=== PATIENT | female | born 1995 | race Caucasian/White ===

== ENCOUNTER 2023-07-01 08:43 | Outpatient (CLI) | payer OTHER, SELFPAY ==
[2023-07-01 09:15] VITALS: BP 137/82; PULSE 103
[2023-07-01 09:24] LABS: Basophils Absolute Auto 0.1 K/mm3 (0.0-0.1); Basophils Percent Auto 0.7 % (0.2-1.2); Eosinophils Absolute Auto 0.3 K/mm3 (0-0.3); Eosinophils Percent Auto 3.2 % (0-4.4); Hematocrit 31.6 % (37.0-47.0); Hemoglobin 9.4 g/dL (12.0-15.0); Immature Granulocyte Absolute 0.07 K/mm3 (0.00-0.031); Immature Granulocyte Percent A 0.7 % (0-0.5); Lymphocytes Absolute Auto 1.86 K/mm3 (0.9-3.2); Lymphocytes Percent Auto 18.7 % (18.3-44.2); Mean Corpuscular HGB Conc 29.7 g/dl (32-36); Mean Corpuscular Hemoglobin 23.6 pg (26-34); Mean Corpuscular Volume 79.2 fl (80-100); Mean Platelet Volume 9.9 fl (7.4-10.4); Monocytes Absolute Auto 0.6 K/mm3 (0.1-0.6); Monocytes Percent Auto 6.4 % (2.6-8.5); Neutrophils Percent Auto 70.3 % (45.5-73.1); Platelet Count Result 311 k/mm3 (150-375); Red Blood Count 3.99 M/mm3 (4.2-5.4); Red Cell Distribution Width 13.5 % (11.5-14.5); White Blood Count 9.9 K/mm3 (4.5-10.0)
[2023-07-01 09:30] VITALS: BP 124/86; PULSE 96
[2023-07-01 09:36] LABS: Alanine Aminotransferase 24 U/L (6-35); Albumin Level 3.4 g/dL (3.5-5.1); Alkaline Phosphatase 97 U/L (38-126); Anion Gap 7 mmol/L (8-16); Aspartate Amino Transferase 21 U/L (14-36); Bilirubin,Total 0.3 mg/dL (0.2-1.3); Blood Urea Nitrogen 5 mg/dL (7-17); Calcium 9.1 mg/dL (8.4-10.2); Carbon Dioxide 23 mmol/L (22-30); Chloride 104 mmol/L (98-107); Estimated Glomerular Filt Rate > 60; Glucose 99 mg/dL (65-110); Potassium 3.4 mmol/L (3.4-5.0); Sodium 134 mmol/L (137-145); Uric Acid 3.8 mg/dL (2.5-7.5)
[2023-07-01 09:46] LABS: Hypochromasia 1+ (NORMAL); Platelet Estimate Adequate (Adequate); Schistocytes None Seen (NORMAL)
[2023-07-01 10:00] VITALS: BP 119/78; PULSE 94
[2023-07-01 10:01] LABS: Appearance Urine Turbid (Clear); Bacteria Urine 3+ /hpf; Bilirubin Urine Negative (Negative); Blood Urine Negative (Negative); Color Urine Yellow (Yellow); Glucose Urine UA Negative (Negative); Ketones Urine Negative (Negative); Leukocyte Esterase Ur Trace LEU/UL (NEGATIVE); Nitrate Urine Negative (Negative); Protein Urine Negative (Negative); RBC Urine 0-2 /hpf (0-2); Specific Grav Ur 1.016 (1.001-1.035); Squamous Epithelial Cell Urine Few /hpf (Few); Urobilinogen Urine 0.2 mg/dL (<2.0)
[2023-07-01 10:06] LABS: Add Urine Microscopic? YES
[2023-07-01 10:10] LABS: Creatinine Urine 93.5 mg/dL; Total Protein Urine Random 33 mg/dL; Ur Ttl Prot Creatinine Ratio 0.35 mg/mg (0-0.20)
[2023-07-01 10:15] VITALS: BP 124/77; PULSE 95
[2023-07-01 10:20] VITALS: BP 119/78; PULSE 100
== END 2023-07-01 10:25 | disposition home or self-care (01) ==
LOC: ANHOBOP 08:52 → ANHOBPP 08:53
PROVIDERS: PCP Family Medicine; Visit Provider Obstetrics & Gynecology
DX: O13.3 Gestational [pregnancy-induced] hypertension without significant proteinuria, third trimester (principal); O36.8130 Decreased fetal movements, third trimester, not applicable or unspecified; Z3A.32 32 weeks gestation of pregnancy
CPT/HCPCS: 36415; 59025; 80053; 81001; 82570; 84156; 84550; 85025; 87086; 99199

== ENCOUNTER 2023-08-11 05:04 | Inpatient (IN) | payer OTHER, SELFPAY ==
[2023-08-11] VITALS (172 sets, daily range): BP systolic 84–155; BP diastolic 53–134; PULSE 65–233; RESP 18; TEMP 36.7–37.2; O2SAT 91–100; BMI 34.3
--- NOTE | 2023-08-11 05:46 | P.HP_ITS ---
H&P: HPI History of Present Illness Date/Time: 08/11/23 05:46 Chief Complaint: Hypertension at term Narrative: 28-year-old 1 para 0 whose last was period was 11/17/2022, EDC is 08/24/2023, presents at 3817 weeks gestation for induction of labor. She is positive for group B strep and has elevated blood pressures. PIH labs will be drawn. She has an early ultrasound and visit confirming dates. [facility] Family History Family History Other Unknown family medical history Social History Social History Substance use: never Spiritual care concerns: No Meds Home Medications and Allergies Home Medications Medication Instructions Recorded Confirmed Type ferrous sulfate 325 mg (65 mg 325 mg PO DAILY 08/05/23 08/05/23 History iron) tablet vits no.126-ferrous fum 1 tablet PO DAILY 08/05/23 08/05/23 History 28 mg iron-folic acid 800 mcg tablet (Classic ) Allergies Allergy/AdvReac Type Severity Reaction Status Date / Time ciprofloxacin [From Cipro] Allergy Rash Verified 08/05/23 12:36 Sulfa (Sulfonamide Allergy Swelling Verified 08/05/23 12:36 Antibiotics) Exam Const: General: cooperative, healthy appearing and comfortable Nutritional Appearance: average body habitus Orientation/consciousness: oriented to person, oriented to place and oriented to time HENMT: Head: normal to inspection Resp: Effort & Inspection: normal respiratory effort Cardio: Rate: regular rate Rhythm: regular rhythm Heart sounds: S1 normal heart sound present and S2 normal heart sound present GI: Inspection: normal to inspection ( Soft gravid uterus) : External Female Exam: normal external appearance Speculum Exam - Vagina: normal appearance of the vagina Speculum Exam - Cervix: normal appearance of the cervix ( cervix 3/80/1. AROM clear. FHTs reassuring) Assessment and Plan Assessment and plan (1) Term : Code(s): Z34.90 - Encounter for supervision of normal , unspecified, unspecified trimester Status: Acute (2) Gestational hypertension: Code(s): O13.9 - Gestational [-induced] hypertension without significant proteinuria, unspecified trimester Status: Acute (3) Positive testing for group B Streptococcus: Code(s): B95.1 - Streptococcus, group B, as the cause of diseases classified elsewhere Status: Acute Plan medical induction of labor. Group B strep prophylaxis PIH labs were drawn. Tailor's failed various expected
[2023-08-11 05:50] LABS: Basophils Absolute Auto 0.1 K/mm3 (0.0-0.1); Eosinophils Absolute Auto 0.4 K/mm3 (0-0.3); Eosinophils Percent Auto 3.8 % (0-4.4); Hematocrit 29.7 % (37.0-47.0); Hemoglobin 8.4 g/dL (12.0-15.0); Immature Granulocyte Absolute 0.04 K/mm3 (0.00-0.031); Immature Granulocyte Percent A 0.4 % (0-0.5); Mean Corpuscular HGB Conc 28.3 g/dl (32-36); Mean Corpuscular Hemoglobin 21.3 pg (26-34); Mean Corpuscular Volume 75.4 fl (80-100); Mean Platelet Volume 10.3 fl (7.4-10.4); Monocytes Absolute Auto 0.8 K/mm3 (0.1-0.6); Neutrophils Absolute Auto 5.5 K/mm3 (1.3-6.7); Neutrophils Percent Auto 58.8 % (45.5-73.1); Nucleated Red Blood Cells Perc 0.2 % (0.0-0.2); Platelet Count Result 311 k/mm3 (150-375); Red Blood Count 3.94 M/mm3 (4.2-5.4); Red Cell Distribution Width 16.2 % (11.5-14.5); White Blood Count 9.3 K/mm3 (4.5-10.0)
[2023-08-11] MEDS: LACTATED RINGERS 1,000 ML 125 ML IV CONT ×3 (05:51→15:05)
[2023-08-11] MEDS: AMPICILLIN 2 GM/NS 100 ML 2 GM/100 ML BAG IVPB (05:52)
[2023-08-11 06:00] LABS: Uric Acid 5.4 mg/dL (2.5-7.5)
--- NOTE | 2023-08-11 06:01 | LDADM ---
This patient, Oly Garcias, was admitted to Labor/Delivery/Recovery 104 on 08/11/23 at 05:04. Plans for labor, pain management and were discussed with patient. Patient/family oriented to hospital policies and general routines including ID bracelet, bed and alarms, visiting hours, pain management, procedures, bathroom and other care routines, personal items, smoking policy, room service/diet and guest tray routines, infant security routines, and visiting hours. Patient/Family are encouraged to report perceived risks to care and to ask questions if they do not understand what they are told or what they should do. See OBIX for further documentation.
[2023-08-11 06:11] LABS: Alanine Aminotransferase 23 U/L (6-35); Albumin Level 3.1 g/dL (3.5-5.1); Alkaline Phosphatase 126 U/L (38-126); Anion Gap 5 mmol/L (8-16); Aspartate Amino Transferase 23 U/L (14-36); Bilirubin,Total 0.3 mg/dL (0.2-1.3); Blood Urea Nitrogen 8 mg/dL (7-17); Calcium 9.4 mg/dL (8.4-10.2); Carbon Dioxide 20 mmol/L (22-30); Chloride 110 mmol/L (98-107); Estimated CRCL calculation 125 ml/min; Estimated Glomerular Filt Rate > 60; Glucose 106 mg/dL (65-110); Potassium 3.8 mmol/L (3.4-5.0); Sodium 135 mmol/L (137-145)
[2023-08-11 06:22] LABS: Anisocytosis 1+ (NORMAL); Hypochromasia 1+ (NORMAL); Large Platelets Present; Platelet Estimate Adequate (Adequate); Schistocytes None Seen (NORMAL)
[2023-08-11] MEDS: OXYTOCIN 30 UNITS/NS 500 ML 30 UNITS/500 ML BAG 6 UNITS IV CONT (06:35)
[2023-08-11] MEDS: AMPICILLIN 1 GM/NS 50 ML 1 GM/50 ML BAG IVPB ×2 (10:06→14:00)
--- NOTE | 2023-08-11 10:46 | WPDANESEPP ---
Anes - Eval Pre Procedure Procedure: Labor Epidural Date/Time: 08/11/23 10:46 Surgeon: David Preop Diagnosis: Labor Pain Pre Op Diagnosis: IOL Patient Data Age: 28 Gender: F Height: 1.6 m Weight: 88 kg Last Vital Signs Pulse 103 H 08/11/23 10:43 BP 133/79 08/11/23 10:43 Pulse Ox 100 08/11/23 10:42 O2 Del Method Room Air 08/11/23 06:00 Allergies Allergy/AdvReac Type Severity Reaction Status Date / Time ciprofloxacin [From Cipro] Allergy Rash Verified 08/11/23 05:53 Sulfa (Sulfonamide Allergy Swelling Verified 08/11/23 05:53 Antibiotics) Home Medications Medication Instructions Recorded Confirmed Type ferrous sulfate 325 mg (65 mg 325 mg PO DAILY 08/05/23 08/05/23 History iron) tablet vits no.126-ferrous fum 1 tablet PO DAILY 08/05/23 08/05/23 History 28 mg iron-folic acid 800 mcg tablet (Classic ) Laboratory Tests 08/11/23 05:36 WBC 9.3 K/mm3 (4.5-10.0) RBC 3.94 L M/mm3 (4.2-5.4) Hgb 8.4 L g/dL (12.0-15.0) Hct 29.7 L % (37.0-47.0) MCV 75.4 L fl (80-100) MCH 21.3 L pg (26-34) MCHC 28.3 L g/dl (32-36) RDW 16.2 H % (11.5-14.5) Plt Count 311 k/mm3 (150-375) MPV 10.3 fl (7.4-10.4) Immature Gran % (Auto) 0.4 % (0-0.5) Neut % (Auto) 58.8 % (45.5-73.1) Lymph % (Auto) 27.0 % (18.3-44.2) [place] % (Auto) 9.0 H % (2.6-8.5) Eos % (Auto) 3.8 % (0-4.4) Baso % (Auto) 1.0 % (0.2-1.2) Lymph # (Auto) 2.50 K/mm3 (0.9-3.2) [place] # (Auto) 0.8 H K/mm3 (0.1-0.6) Eos # (Auto) 0.4 H K/mm3 (0-0.3) Baso # (Auto) 0.1 K/mm3 (0.0-0.1) Abs Immat Gran (auto) 0.04 H K/mm3 (0.00-0.031) Absolute Neuts (auto) 5.5 K/mm3 (1.3-6.7) Absolute Nucleated RBC 0.0 K/mm3 (0.0-0.012) Nucleated RBC % 0.2 % (0.0-0.2) Platelet Estimate Adequate (Adequate) Large Platelets Present Hypochromasia 1+ (NORMAL) Anisocytosis 1+ (NORMAL) Schistocytes None seen (NORMAL) Sodium 135 L mmol/L (137-145) Potassium 3.8 mmol/L (3.4-5.0) Chloride 110 H mmol/L (98-107) Carbon Dioxide 20 L mmol/L (22-30) Anion Gap 5 L mmol/L (8-16) BUN 8 mg/dL (7-17) Creatinine 0.60 L mg/dL (0.7-1.0) Estim Creat Clear Calc 125 ml/min Estimated GFR > 60 (59 - ) Glucose 106 mg/dL (65-110) Uric Acid 5.4 mg/dL (2.5-7.5) Calcium 9.4 mg/dL (8.4-10.2) Total Bilirubin 0.3 mg/dL (0.2-1.3) AST 23 U/L (14-36) ALT 23 U/L (6-35) Alkaline Phosphatase 126 U/L (38-126) Total Protein 6.0 L g/dL (6.3-8.2) Albumin 3.1 L g/dL (3.5-5.1) RPR Pending Blood Type A Positive Antibody Screen Negative : gestational age (SUZETTE 08/24/23, ) Patient hx anesthesia problems: none Family hx anesthesia problems: none Results Review: All pre-operative results and documents have been reviewed as part of the pre-operative evaluation. [facility] Family History Family History Other Unknown family medical history Social History Social History Smoking status: Never smoker Substance use: never Do You Feel Safe in your Home?: No Lack of Transportation: No Lack of Food: Never True Current Housing: I Have Housing Concerned About Future Housing: No Difficulty Paying Gas/Electric Bills: No Difficulty Paying for Meds: No Currently Unemployed: No Education: High School Diploma/GED Difficulty w/ Childcare or Family Care: No Spiritual care concerns: No Comments Induction for gestational htn Exam Day of Procedure 08/11/23 10:46 Patient weight: normal Heart: regular rate and rhythm Lungs: normal air movement Airway: Mallampati scale Neurological: alert and oriented
--- NOTE | 2023-08-11 11:51 | PM.OBPNLAB ---
Pain Control Date/time seen: 08/11/23 11:51 Pain control: tolerating well and epidural Pelvic Exam Dilation (cm): 4 Effacement (%): 80 station: -2 Amniotic membrane status: Leaking Contractions Monitor mode: Internal
[2023-08-11 14:39] LABS: Rapid Plasma Reagin Non-Reactive (NonReactive)
--- NOTE | 2023-08-11 16:21 | PM.OBPNLAB ---
Pain Control Date/time seen: 08/11/23 16:21 Pain control: tolerating well and epidural Pelvic Exam Dilation (cm): 10 Effacement (%): 100 station: -2 Amniotic membrane status: Leaking Contractions Monitor mode: Internal
--- NOTE | 2023-08-11 16:59 | PM.OBPRVD ---
OB - Vaginal Delivery Note Procedure Delivery date: 08/11/23 Events: Gestational Hypertension Induction method: AROM Delivery augmentation: Pitocin Delivery monitor: External FHT and Internal Uterine Route of delivery: Episiotomy description: None Laceration Description: None Specimen: No Quantitative Blood Loss (ml): 61 Anesthesia type: Epidural Disposition: Floor Complications: No immediate complications [place] Baby Date of : 08/11/23 Time of : 16:50 Weeks of gestation at delivery: 38 Infant gender: Male presentation: vertex position: Right Occiput Anterior Placenta delivery description: Spontaneous Cord Vessel Description: 3 Vessels score one minute: 8 score five minutes: 9 Narrative: amp 3 for gbs
--- NOTE | 2023-08-11 17:01 | PM.DS ---
DS: Admitting Diagnosis Discharge Date 08/13/2023 Admitting Diagnosis Gestational hypertension /term DS: Discharge Diagnosis Discharge Diagnosis (1) Positive testing for group B Streptococcus: Code(s): B95.1 - Streptococcus, group B, as the cause of diseases classified elsewhere Status: Acute (2) Gestational hypertension: Code(s): O13.9 - Gestational [-induced] hypertension without significant proteinuria, unspecified trimester Status: Acute (3) Term : Code(s): Z34.90 - Encounter for supervision of normal , unspecified, unspecified trimester Status: Acute DS: Summary Hospital Course Reason for hospitalization: patient was admitted on 08/11/2023 for induction of labor secondary to elevated blood pressures positive group B strep. Hospital Course: Patient underwent spontaneous vaginal delivery at . Hospital course unremarkable. She remained afebrile. She was up, voiding without difficulty, eating regular diet, ambulating, generally without complaints Time Spent with Patient Time attestation: Total time spent providing and/or coordinating discharge services: Exam Const: General: cooperative, healthy appearing and comfortable Nutritional Appearance: average body habitus Orientation/consciousness: oriented to person, oriented to place and oriented to time Resp: Effort & Inspection: normal respiratory effort Cardio: Rate: regular rate Rhythm: regular rhythm Heart sounds: S1 normal heart sound present and S2 normal heart sound present GI: Inspection: normal to inspection ( fundus firm below umbilicus) DS: Data Data Completed and Pending Labs on day of discharge: Labs from last 24 hours 08/11/23 05:36 WBC 9.3 RBC 3.94 L Hgb 8.4 L Hct 29.7 L MCV 75.4 L MCH 21.3 L MCHC 28.3 L RDW 16.2 H Plt Count 311 MPV 10.3 Immature Gran % (Auto) 0.4 Neut % (Auto) 58.8 Lymph % (Auto) 27.0 [place] % (Auto) 9.0 H Eos % (Auto) 3.8 Baso % (Auto) 1.0 Lymph # (Auto) 2.50 [place] # (Auto) 0.8 H Eos # (Auto) 0.4 H Baso # (Auto) 0.1 Abs Immat Gran (auto) 0.04 H Absolute Neuts (auto) 5.5 Absolute Nucleated RBC 0.0 Nucleated RBC % 0.2 Platelet Estimate Adequate Large Platelets Present Hypochromasia 1+ Anisocytosis 1+ Schistocytes None seen Sodium 135 L Potassium 3.8 Chloride 110 H Carbon Dioxide 20 L Anion Gap 5 L BUN 8 Creatinine 0.60 L Estim Creat Clear Calc 125 Estimated GFR > 60 Glucose 106 Uric Acid 5.4 Calcium 9.4 Total Bilirubin 0.3 AST 23 ALT 23 Alkaline Phosphatase 126 Total Protein 6.0 L Albumin 3.1 L RPR Non-reactive Blood Type A Positive Antibody Screen Negative Discharge Plan Discharge Attending physician on discharge: Sohan Barrera Discharging Clinician: Sohan Barrera Patient Disposition: Home, Self-Care Activity: may shower and no straining Diet: heart healthy Wound Care Instructions: follow printed instructions Patient Instructions: Antibiotic Form Stand Alone Forms: General Discharge Information Follow-up/Referrals: Sohan Barrera MD [Physician] - Discharge Medications: No Action Classic 28 mg iron- 800 mcg Tablet 1 tablet PO DAILY ferrous sulfate 325 mg (65 mg iron) Tablet 325 mg PO DAILY Date of admission: 08/11/23 05:04 Primary Care Provider: Ever,Paola Admitting Provider: Sohan Barrera Attending physician on admission: Sohan Barrera Condition: Stable
[2023-08-11] MEDS: OXYTOCIN 30 UNITS/NS 500 ML 30 UNITS/500 ML BAG 125 UNITS IV CONT (17:16)
[2023-08-11] MEDS: IBUPROFEN 600 MG TABLET PO (19:07)
[2023-08-12] MEDS: IBUPROFEN 600 MG TABLET PO ×3 (02:15→13:53)
[2023-08-12] MEDS: ACETAMINOPHEN 325 MG TABLET 650 MG PO ×3 (02:16→16:43)
[2023-08-12 04:00] VITALS: BP 140/67; PULSE 86; RESP 18; TEMP 36.5; O2SAT 100
[2023-08-12 04:26] LABS: Hematocrit 27.4 % (37.0-47.0); Hemoglobin 8.1 g/dL (12.0-15.0)
--- NOTE | 2023-08-12 06:04 | P.PNOB_ITS ---
OB - PN: Subj Subjective Date/time seen: 08/12/23 06:04 Patient comments: no complaints and pain well controlled baby status: doing well OB - PN: Obj Data Labs 08/12/23 02:10 08/11/23 05:36 Labs: Laboratory Results - last 24 hr 08/11/23 08/12/23 05:36 02:10 WBC 9.3 RBC 3.94 L Hgb 8.4 L 8.1 L Hct 29.7 L 27.4 L MCV 75.4 L MCH 21.3 L MCHC 28.3 L RDW 16.2 H Plt Count 311 MPV 10.3 Immature Gran % (Auto) 0.4 Neut % (Auto) 58.8 Lymph % (Auto) 27.0 [place] % (Auto) 9.0 H Eos % (Auto) 3.8 Baso % (Auto) 1.0 Lymph # (Auto) 2.50 [place] # (Auto) 0.8 H Eos # (Auto) 0.4 H Baso # (Auto) 0.1 Abs Immat Gran (auto) 0.04 H Absolute Neuts (auto) 5.5 Absolute Nucleated RBC 0.0 Nucleated RBC % 0.2 Platelet Estimate Adequate Large Platelets Present Hypochromasia 1+ Anisocytosis 1+ Schistocytes None seen Sodium 135 L Potassium 3.8 Chloride 110 H Carbon Dioxide 20 L Anion Gap 5 L BUN 8 Creatinine 0.60 L Estim Creat Clear Calc 125 Estimated GFR > 60 Glucose 106 Calcium 9.4 Total Bilirubin 0.3 AST 23 ALT 23 Alkaline Phosphatase 126 Total Protein 6.0 L Albumin 3.1 L RPR Non-reactive Blood Type A Positive Antibody Screen Negative OB - PN A/P Plan day: 1 Plan: routine care Time Spent With Patient Time: Total time spent is greater than 50% in coordination of care (as documented) at patient's floor/unit and/or counseling patient: Time with patient: less than 15 minutes Exam Const: General: cooperative, healthy appearing and comfortable Nutritional Appearance: average body habitus Orientation/consciousness: oriented to person, oriented to place and oriented to time Resp: Effort & Inspection: normal respiratory effort Cardio: Rate: regular rate Rhythm: regular rhythm Heart sounds: S1 normal heart sound present and S2 normal heart sound present GI: Inspection: normal to inspection
[2023-08-12] MEDS: POLYSACCHARIDE IRON COMPLEX 150 MG CAPSULE PO ×2 (08:31→16:44)
[2023-08-12] MEDS: MULTIVIT/MIN/PREN/FOL AC/IRON TABLET 1 TAB PO (08:31)
[2023-08-12] MEDS: DOCUSATE SODIUM 100 MG CAPSULE PO ×2 (08:31→16:44)
[2023-08-12 09:35] VITALS: BP 128/85; PULSE 89; RESP 16; TEMP 36.8; O2SAT 100
[2023-08-12 11:58] VITALS: BP 127/71; PULSE 86; RESP 16; TEMP 36.8; O2SAT 100
--- NOTE | 2023-08-12 13:10 | PC.NURSE ---
[id number] - Introductions were made, then consulted with patient to assess needs related to . Discussed with mother her?plans to feed?her , the?experience so far, sharing education regarding waking infant to breastfeed, the benefits of [id number], and stimulating to wake to breastfeed. Resources provided for inpatient and outpatient services with the feeding sheet, mom/baby guide and name written on the communication board. Mother voiced understanding of information, encouraged to call for a latch assessment with the next feeding. Infant is not in the room at this time. Maternal mother is supportive, a former coworker of MAGDA LOPEZ at [employer], and mentions other supportive family member successful with . [id number] Mother called and requested a consultation. Introductions were made with the father of the baby, then consulted with patient to assess needs related to . Mother led the conversation with her?plans to feed?her infant, the?experience so far, and works well with her with encouragement. Encouraged understanding of the benefits of skin to skin (demonstrating unwrapping and placing upright on her chest), stimulating with massage touch, changing positions to encourage wakefulness, how to watch for early feeding cues, responsive feeding, feeding on demand (aiming for 8-12 times in 24 hours, about every 2-3 hours), milk production, building/maintaining a milk supply, duration of feeding, signs of adequate intake/output and how to record on the feeding sheet. Mother works well with her infant with encouragement and education. Reviewed positioning and ear, shoulder, hip alignment, supporting the breast to facilitate a deep latch, asymmetrical latch (off-center), leading with the chin with a big, open, wide gape and body close to mother. latched optimally to the right breast in football position. Education given to the mother of how to visualize the suckling (with good rocking jaw motion), swallows (dropping of the lower jaw) and how to listen for drinking at the breast (the ka sound) which demonstrates well. Infant was able to maintain latch without pain to mother protecting the nipple with optimal positioning and latching. Reviewed comfort measures of healing with a warm, wet washcloth to rinse breast, then leave open to air-dry, good handwashing when or touching the breast/nipples to prevent infection. Mother voiced understanding of skin to skin, stimulating with massage touch, responsive feedings, hand expressed colostrum, talking to to encourage if it has been 2 -2.5 hours since the start of the last , to call if infant does not latch, or if there is discomfort with . Resources used for education were facilitated with the visual educational handouts/ tool/mom and baby guide. Inpatient/outpatient resources provided with feeding sheet, name written on the communication board, and the mom/baby guide. Parents voiced understanding of information, demonstrated learning and will call if there is a request for assistance. Reported to the Primary RN.
[2023-08-12 16:40] VITALS: BP 130/84; PULSE 81
[2023-08-12 19:10] VITALS: BP 133/97; PULSE 88; RESP 18; TEMP 36.7; O2SAT 99
[2023-08-13] VITALS: BP 128/82
[2023-08-13] MEDS: IBUPROFEN 600 MG TABLET PO ×2 (02:45→08:30)
[2023-08-13 02:59] VITALS: BP 124/85
--- NOTE | 2023-08-13 05:45 | P.PNOB_ITS ---
OB - PN: Subj Subjective Date/time seen: 08/13/23 05:45 Patient comments: no complaints and pain well controlled baby status: doing well and nursing well OB - PN: Obj Data Labs 08/12/23 02:10 08/11/23 05:36 OB - PN A/P Plan day: 2 Plan: routine care, discharge home and follow up 6 weeks Time Spent With Patient Time: Total time spent is greater than 50% in coordination of care (as documented) at patient's floor/unit and/or counseling patient: Time with patient: less than 15 minutes Exam Const: General: cooperative, healthy appearing and comfortable Nutritional Appearance: average body habitus Orientation/consciousness: oriented to person, oriented to place and oriented to time Resp: Effort & Inspection: normal respiratory effort Cardio: Rate: regular rate Rhythm: regular rhythm Heart sounds: S1 n ormal heart sound present and S2 normal heart sound present GI: Inspection: normal to inspection
[2023-08-13 08:30] VITALS: BP 124/93; PULSE 84; RESP 16; TEMP 37.1; O2SAT 99
[2023-08-13] MEDS: BENZOCAINE 20% AER SPR (*SP) 56 GM CAN 1 SPRAY TOPICAL (08:31)
[2023-08-13] MEDS: POLYSACCHARIDE IRON COMPLEX 150 MG CAPSULE PO (08:31)
[2023-08-13] MEDS: DOCUSATE SODIUM 100 MG CAPSULE PO (08:31)
[2023-08-13] MEDS: WITCH HAZEL 40 PADS 1 PAD TOPICAL (08:31)
[2023-08-13] MEDS: MULTIVIT/MIN/PREN/FOL AC/IRON TABLET 1 TAB PO (08:31)
[2023-08-13] MEDS: ACETAMINOPHEN 325 MG TABLET 650 MG PO ×2 (08:32→15:47)
[2023-08-13 12:28] VITALS: BP 145/88; PULSE 95; RESP 16; TEMP 36.9; O2SAT 100
--- NOTE | 2023-08-13 12:33 | PC.NURSE ---
[id number] Consulted with patient to assess needs related to . Discussed with mother her successes, concerns and any questions she has. Mother shared that last night was rough and she chose to formula feed to supplement. Reviewed waking up , stimulating, changing diaper, and practicing skin to skin, responding to feeding cues, frequencies of feeding 8-12 times in 24 hours (approximately 2-3 hours), duration of feedings, milk production, intake/output feeding sheet and signs of adequate intake encouraging swallowing at the breast. Infant had a large stool and void, then placed back [id number] on mother's chest/breast. Nipple care reviewed with optimal latch, good positioning and using clean hands when touching her breast. Mother voiced understanding of the education shared, to call for assistance if the infant does not latch or if there is discomfort with . Reported to the Primary RN. [phone] Mother requested consult and works well with her . Reviewed positioning and ear, shoulder, hip alignment, supporting the breast to facilitate a deep latch, asymmetrical latch (off-center), leading with the chin with a big, open, wide gape and body close to mother. latched optimally to the left breast in football position. Education given to the mother of how to visualize the suckling (with good rocking jaw motion), swallows (dropping of the lower jaw) and how to listen for drinking at the breast (the ka sound) which infant demonstrates. Infant was able to maintain latch without pain to mother protecting the nipple with optimal positioning and latching. Reminded mother to use good handwashing technique to prevent infection. Mother is feeding appropriately for growth of infant and understands stimulating infant to eat if needed. Infant has had appropriate feedings in the last 24 hours meets the outcomes for weight, output, blood sugar and jaundice at this time. Mother states she is confident to continue effectively her at home, when to call for assistance, denies any additional assistance or education at this time. Reinforced understanding of milk production, transition of milk, signs of adequate intake, transition of stool, prevention/relief of engorgement, plugged ducts, mastitis, responsive watching for feeding cues, the different methods of stimulating to breastfeed 1-3 hours after the start of the last feeding, community resources, and when to call a provider using the resource of the feeding sheet along with the mom and baby guide. Parents voiced understanding of the education shared. Reported to the Primary RN
--- NOTE | 2023-08-13 14:30 | PC.NURSE ---
PT introductions made and plan of care discussed per post , pain management, breast feeding, daily care activities and pending discharge to home. PT and fob both recipients of such instructions and no barriers to learning identified at this time. PT received such instructions per one to one discussion, mom baby care guide and demonstrations this shift. PT verbalized understanding of such care.
--- NOTE | 2023-08-13 16:15 | PC.NURSE ---
PT received discharge instructions per protocol and verbalized understanding of such care. Patient was given the opportunity to view the discharge video Mother & Baby Care, The First Two Weeks and to ask questions. Patient declined viewing the video and has been given the mother/baby guide for home reference. Patient viewed the discharge video Mother & Baby Care, The First Two Weeks . Patient was given the opportunity and encouraged to ask questions. Patient verbalized understanding of information shared and has been given the mother/baby guide for home reference.
--- NOTE | 2023-08-13 16:52 | PC.NURSE ---
PT discharged to home ambulatory accompanied by fob and infant and walked to waiting car. Follow up appts confirmed
[2023-08-14 11:45] VITALS: BP 126/96; PULSE 89; RESP 18; TEMP 36.7; O2SAT 100
== END 2023-08-13 16:52 | disposition home or self-care (01) | DRG 807 ==
LOC: ANHLDR 17:03 → ANHOB2 19:21
PROVIDERS: Admitting Provider Obstetrics & Gynecology; PCP Family Medicine; Visit Provider Obstetrics & Gynecology
DX: O13.4 Gestational [pregnancy-induced] hypertension without significant proteinuria, complicating childbirth (principal); Z37.0 Single live birth; Z3A.38 38 weeks gestation of pregnancy; O99.824 Streptococcus B carrier state complicating childbirth
CPT/HCPCS: 36415; 80053; 84550; 85014; 85018; 85025; 86592; 86850; 86900; 86901; A9270; J0290; J2590; J2795; J7120

== ENCOUNTER 2024-11-30 11:26 | Outpatient (CLI) | payer OTHER, SELFPAY ==
[2024-11-30] VITALS (9 sets, daily range): BP systolic 132–146; BP diastolic 77–95; PULSE 97–112; BMI 40.8
--- NOTE | 2024-11-30 11:39 | PM.OBTRLD ---
OB - Triage/Final Diagnosis Visit Information Date of evaluation: 11/30/24 Reason for evaluation: other (htn) Comments/Additional reasons for admission: I have assessed the risk for this patient, Oly Garcias, and determined that she would benefit from observation care.
[2024-11-30 12:09] LABS: Basophils Percent Auto 0.5 % (0.2-1.2); Eosinophils Absolute Auto 0.2 K/mm3 (0-0.3); Eosinophils Percent Auto 2.4 % (0-4.4); Hematocrit 29.6 % (37.0-47.0); Hemoglobin 8.8 g/dL (12.0-15.0); Immature Granulocyte Absolute 0.07 K/mm3 (0.00-0.031); Immature Granulocyte Percent A 0.8 % (0-0.5); Lymphocytes Absolute Auto 1.98 K/mm3 (0.9-3.2); Lymphocytes Percent Auto 22.6 % (18.3-44.2); Mean Corpuscular HGB Conc 29.7 g/dl (32-36); Mean Corpuscular Hemoglobin 22.7 pg (26-34); Mean Corpuscular Volume 76.5 fl (80-100); Mean Platelet Volume 9.6 fl (7.4-10.4); Monocytes Absolute Auto 0.8 K/mm3 (0.1-0.6); Monocytes Percent Auto 8.9 % (2.6-8.5); Neutrophils Absolute Auto 5.7 K/mm3 (1.3-6.7); Neutrophils Percent Auto 64.8 % (45.5-73.1); Nucleated Red Blood Cells Perc 0.2 % (0.0-0.2); Platelet Count Result 272 k/mm3 (150-375); Red Blood Count 3.87 M/mm3 (4.2-5.4); Red Cell Distribution Width 15.2 % (11.5-14.5); White Blood Count 8.8 K/mm3 (4.5-10.0)
[2024-11-30 12:19] LABS: Alanine Aminotransferase 12 U/L (6-35); Albumin Level 3.3 g/dL (3.5-5.1); Alkaline Phosphatase 103 U/L (38-126); Anion Gap 8 mmol/L (4-12); Aspartate Amino Transferase 21 U/L (14-36); Bilirubin,Total 0.3 mg/dL (0.2-1.3); Blood Urea Nitrogen 5 mg/dL (7-17); Calcium 9.6 mg/dL (8.4-10.2); Carbon Dioxide 19 mmol/L (22-30); Chloride 107 mmol/L (98-107); Estimated Glomerular Filt Rate > 60; Glucose 94 mg/dL (65-110); Potassium 3.8 mmol/L (3.4-5.0); Sodium 134 mmol/L (137-145); Total Protein 6.5 g/dL (6.3-8.2); Uric Acid 5.1 mg/dL (2.5-7.5)
[2024-11-30 12:38] LABS: Hypochromasia 1+; Platelet Estimate Adequate (Adequate); Schistocytes None Seen
[2024-11-30 12:49] LABS: Add Urine Microscopic? YES; Appearance Urine Clear (Clear); Bacteria Urine None Seen /hpf; Bilirubin Urine Negative (Negative); Blood Urine Negative (Negative); Color Urine Yellow (Yellow); Glucose Urine UA Negative (Negative); Ketones Urine Negative (Negative); Leukocyte Esterase Ur Trace LEU/UL (Negative); Nitrate Urine Negative (Negative); Non Pathogenic Casts 0-2; Protein Urine Negative (Negative); RBC Urine 0-2 /hpf (0-2); Specific Grav Ur 1.017 (1.001-1.035); Squamous Epithelial Cell Urine Few /hpf (Few); Urobilinogen Urine 0.2 mg/dL (<2.0); WBC Urine 0-5 /hpf (0-3); pH Urine 6.5 (5.0-9.0)
[2024-11-30 13:00] LABS: Creatinine Urine 100.8 mg/dL; Total Protein Urine Random 41 mg/dL; Ur Ttl Prot Creatinine Ratio 0.41 mg/mg (0-0.20)
--- OUTSIDE RECORDS SUMMARY | 2024-11-30 13:18 | XMS_ITS | Clinical Summary ---
Author Organization [facility] Address [address] [place] [address] Care Team Providers Care Note Taker Name Role Phone Paola Curtis DO Primary Care Provider [phone] Allergies Active Allergy Reactions Criticality Noted Date Comments Ciprofloxacin Rash Low 07/08/2019 Sulfa Antibiotics Rash Low 07/08/2019 Sulfamethoxazole-Trimethoprim Unknown 2021 Medications vitamin ( PLUS) 27-1 MG tablet Take 1 tablet by mouth daily. Active Active Problems Problem Noted Date Diagnosed Date LILIAM (generalized anxiety disorder) 09/10/2022 Abnormal blood level of copper 09/10/2022 Generalized abdominal pain 09/10/2022 Weight loss 11/07/2021 Overview (11/07/2021): Added automatically from request for surgery [id number] Nausea 11/07/2021 Overview (11/07/2021): Added automatically from request for surgery [id number] Vomiting 11/07/2021 Overview (11/07/2021): Added automatically from request for surgery [id number] Anxiety 07/08/2019 Episode of recurrent major depressive disorder 0 07/08/2019 Estimated Date of Delivery Comme nts Yes 08/24/2023 Immunizations Immunization Administration Dates Next Due Fluzone 6 Months+ Quad (0.5 mL Prefilled Syringe ) 07/02/2022 HPV4 (Gardasil) 11/27/2010 Menactra 02/13/2015 Tdap (Generic) 11/05/2011 Family History Medical History Relation Comments Arthritis Father Rheumatoid arthr itis Rheumatoid Arthritis Father Heart Disease Maternal Grandfather Cancer Mother Melanoma Diabetes Paternal Grandmother Hypertension Paternal Grandmother Stroke Paternal Grandmother Relation Status Comments Father Maternal Grandfather Mother Paternal Grandmother Social History Tobacco Use Types Packs/Day Years Used Date Smoking Tobacco: Former Cigarettes Smokeless Tobacco: Never Tobacco Cessation:Counseling Given: Yes Comments:vapes using Brenna pods every other day Alcohol Use Standard Drinks/Week Comments Not Currently 0 (1 standard drink = 0.6 oz pur e alcohol) 1-2 drinks/month PHQ-2 Answer Date Recorded Patient Health Questionnaire-2 Score 2 09/10/2022 Estimated Date of Delivery Comme nts Yes 08/24/2023 Sex and Gender Information Value Date Recorded Sex Assigned at Not on file 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 Gender Identity Female 09/19/2021 5:10 AM CDT Sexual Orientation Not on file Last Filed Vital Signs Vital Sign Reading Time Taken Comments Blood Pressure 118/70 12/24/2022 8:18 AM CDT Pulse 84 12/24/2022 8:18 AM CDT Temperature 36.6 C (97.8 F) 12/24/2022 8:18 AM CDT Respiratory Rate 16 12/24/2022 8:18 AM CDT Oxygen Saturation 100% 12/24/2022 8:18 AM CDT Inhaled Oxygen Concentration - - Weight 56.3 kg (124 lb 3.2 oz) 12/24/2022 8:18 A M CDT Height 160 cm (5' 3) 12/24/2022 8:18 AM CDT Body Mass Index 22 12/24/2022 8:18 AM CDT Plan of Treatment Health Maintenance Due Date Last Done Comments Cervical Cancer Screening Pa p Smear (Age 21 to 29) Every 3 Years 1995 Cervical Cancer Screening 1995 Annual Physical 1998 Hepatitis C 2013 Hepatitis B Vaccines (1 of 3 - 19+ 3-dose series) 2014 DTaP, Tdap and Td Vaccines ( 2 - Td or Tdap) 11/04/2021 11/05/2011 COVID-19 Vaccine (2 - 2023-2 5 season) 2024 12/31/2020 PHQ-2 (Physician Ely) 06/15/2024 HPV Vaccines (2 - 3-dose series) 01/05/2048 11/28/19 11 Postponed from 12/25/2010 (Per Provider Recommendation) RSV Immunization or 60+ Years (1 - 1-dose 75+ series) 2070 Meningococcal Vaccine Aged Out 02/13/2015 No luther gilbert eligible based on patient's age to complete this topic Meningococcal B Vaccine Aged Out No l onger eligible based on patient's age to complete this topic Pneumococcal Vaccine: Pediat rics (0 to 5 Years) and At-Risk Patients (6 to 49 Years) Aged Out No longer eligi ble based on patient's age to complete this topic RSV Immunizations Under 20 Months Aged Out No longer eligible based on patient's age to complete this topic Insurance [employer] Care Teams Note Taker Relationship Specialty Start Date End Date Paola Curtis DO [address] [place] [id number] PCP - General FAMILY PRACTICE 06/24/22
--- OUTSIDE RECORDS SUMMARY | 2024-11-30 13:18 | XMS_ITS | Clinical Summary ---
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 Gender Identity Not on file Sexual Orientation Not on file Last Filed Vital Signs Vital Sign Reading Time Taken Comments Blood Pressure 131/88 08/07/2021 5:30 AM PUBLIC RELATIONS ACCOUNT EXECUTIVE Pulse 83 08/07/2021 5:30 AM PUBLIC RELATIONS ACCOUNT EXECUTIVE Temperature 36.7 C (98.1 F) 08/07/2021 5:02 AM PUBLIC RELATIONS ACCOUNT EXECUTIVE Respiratory Rate 21 08/07/2021 5:30 AM PUBLIC RELATIONS ACCOUNT EXECUTIVE Oxygen Saturation 100% 08/07/2021 5:30 AM PUBLIC RELATIONS ACCOUNT EXECUTIVE Inhaled Oxygen Concentration - - Weight 63.5 kg (140 lb) 08/07/2021 5:02 AM PUBLIC RELATIONS ACCOUNT EXECUTIVE Height 172.7 cm (5' 8) 08/07/2021 5:02 AM PUBLIC RELATIONS ACCOUNT EXECUTIVE Body Mass Index 21.29 08/07/2021 5:02 AM PUBLIC RELATIONS ACCOUNT EXECUTIVE Plan of Treatment Health Maintenance Due Date Last Done Comments HPV VACCINES (2 - 3-dose series) 12/25/2010 11/28/19 11 HEPATITIS B VACCINES (1 of 3 - 19+ 3-dose series) 07/2013 CERVICAL CANCER SCREENING 02/15/2016 HPV/Cotest (21-29) 02/15/2016 PAP SMEAR 02/15/2016 DTAP/TDAP/TD VACCINES (2 - Td or Tdap) 11/04/2021 INFLUENZA VACCINE (#1) 2024 Insurance [employer] OPEN CHOICE PPO
== END 2024-11-30 13:22 | disposition home or self-care (01) ==
LOC: ANHOBOP 11:29 → ANHOBPP 11:30
PROVIDERS: Visit Provider Obstetrics & Gynecology
DX: O26.893 Other specified pregnancy related conditions, third trimester (principal); R03.0 Elevated blood-pressure reading, without diagnosis of hypertension; Z3A.37 37 weeks gestation of pregnancy
CPT/HCPCS: 36415; 59025; 80053; 81001; 82570; 84156; 84550; 85025; 99199

== ENCOUNTER 2024-12-06 18:22 | Inpatient (IN) | payer OTHER, SELFPAY ==
[2024-12-06] VITALS (9 sets, daily range): BP systolic 132–163; BP diastolic 85–102; PULSE 93–109; TEMP 36.6; BMI 41.0
[2024-12-06 19:15] LABS: Basophils Percent Auto 0.3 % (0.2-1.2); Eosinophils Absolute Auto 0.2 K/mm3 (0-0.3); Eosinophils Percent Auto 2.1 % (0-4.4); Hematocrit 28.6 % (37.0-47.0); Hemoglobin 8.6 g/dL (12.0-15.0); Immature Granulocyte Absolute 0.07 K/mm3 (0.00-0.031); Immature Granulocyte Percent A 0.7 % (0-0.5); Lymphocytes Absolute Auto 2.13 K/mm3 (0.9-3.2); Lymphocytes Percent Auto 20.8 % (18.3-44.2); Mean Corpuscular HGB Conc 30.1 g/dl (32-36); Mean Corpuscular Hemoglobin 22.8 pg (26-34); Mean Corpuscular Volume 75.7 fl (80-100); Mean Platelet Volume 9.9 fl (7.4-10.4); Monocytes Absolute Auto 0.9 K/mm3 (0.1-0.6); Monocytes Percent Auto 8.7 % (2.6-8.5); Neutrophils Absolute Auto 6.9 K/mm3 (1.3-6.7); Neutrophils Percent Auto 67.4 % (45.5-73.1); Nucleated Red Blood Cells Perc 0.2 % (0.0-0.2); Platelet Count Result 272 k/mm3 (150-375); Red Blood Count 3.78 M/mm3 (4.2-5.4); Red Cell Distribution Width 15.7 % (11.5-14.5); White Blood Count 10.3 K/mm3 (4.5-10.0)
[2024-12-06 19:24] LABS: Creatinine Urine 96.6 mg/dL; Total Protein Urine Random 9 mg/dL; Ur Ttl Prot Creatinine Ratio 0.09 mg/mg (0-0.20)
[2024-12-06 19:25] LABS: Alanine Aminotransferase 12 U/L (6-35); Albumin Level 3.3 g/dL (3.5-5.1); Alkaline Phosphatase 94 U/L (38-126); Anion Gap 7 mmol/L (4-12); Aspartate Amino Transferase 23 U/L (14-36); Bilirubin,Total 0.3 mg/dL (0.2-1.3); Blood Urea Nitrogen 7 mg/dL (7-17); Calcium 9.1 mg/dL (8.4-10.2); Carbon Dioxide 19 mmol/L (22-30); Chloride 108 mmol/L (98-107); Estimated Glomerular Filt Rate > 60; Glucose 107 mg/dL (65-110); Potassium 3.9 mmol/L (3.4-5.0); Sodium 134 mmol/L (137-145); Total Protein 6.5 g/dL (6.3-8.2); Uric Acid 5.1 mg/dL (2.5-7.5)
[2024-12-06 19:45] LABS: Add Urine Microscopic? YES; Appearance Urine Clear (Clear); Bacteria Urine None Seen /hpf; Bilirubin Urine Negative (Negative); Blood Urine Negative (Negative); Color Urine Yellow (Yellow); Glucose Urine UA Negative (Negative); Ketones Urine Negative (Negative); Leukocyte Esterase Ur 1+ LEU/UL (Negative); Need Manual Microscopic Reviewed; Nitrate Urine Negative (Negative); Non Pathogenic Casts 0-2; Protein Urine Trace mg/dL (Negative); RBC Urine 0-2 /hpf (0-2); Specific Grav Ur 1.018 (1.001-1.035); Squamous Epithelial Cell Urine Occasional /hpf (Few); Urobilinogen Urine 0.2 mg/dL (<2.0); WBC Urine 0-5 /hpf (0-3); pH Urine 7.5 (5.0-9.0)
[2024-12-06 19:53] LABS: Syphilis IgG/IgM Antibody Non-Reactive (Nonreactive)
--- NOTE | 2024-12-06 21:06 | LDADM ---
This patient, Oly Garcias, was admitted to Labor/Delivery/Recovery 109 on 12/06/24 at 18:22. Plans for labor, pain management and were discussed with patient. Patient/family oriented to hospital policies and general routines including ID bracelet, bed and alarms, visiting hours, pain management, procedures, bathroom and other care routines, personal items, smoking policy, room service/diet and guest tray routines, infant security routines, and visiting hours. Patient/Family are encouraged to report perceived risks to care and to ask questions if they do not understand what they are told or what they should do. See OBIX for further documentation.
[2024-12-07] VITALS (88 sets, daily range): BP systolic 77–157; BP diastolic 34–99; PULSE 79–135; RESP 16–18; TEMP 36.1–37.4; O2SAT 93–100
[2024-12-07] MEDS: LACTATED RINGERS 500 ML 999 ML IV CONT (00:28)
[2024-12-07] MEDS: LACTATED RINGERS 1,000 ML 125 ML IV CONT ×2 (05:00→08:18)
[2024-12-07] MEDS: OXYTOCIN 30 UNITS/NS 500 ML 30 UNITS/500 ML BAG IV CONT (05:00)
--- NOTE | 2024-12-07 06:39 | P.HP_ITS ---
H&P: HPI History of Present Illness Date/Time: 12/07/24 06:39 Chief Complaint: Term gestational hypertension Narrative: 29-year-old 2 para 1 whose last menstrual period was 03/10/2024, EDC is 12/15/2024, presents at 38 and 6 7th weeks gestation with elevated blood pressures and advanced cervical dilatation. She is negative for group B strep. She failed her 1hour diabetic screen but was for over 4 normal on her 3hour. Pressures are noted to be elevated with normal PIH labs. She will be admitted for delivery Review of Systems Review of Systems: All systems reviewed & are unremarkable except as noted in HPI and below PMFSH Family History Family History Sibling Trisomy 13 Other Unknown family medical history Social History Social History Smoking status: Never smoker Substance use: never Do You Feel Safe in your Home?: No Lack of Transportation: No Lack of Food: Never True Current Housing: I Have Housing Concerned About Future Housing: No Difficulty Paying Gas/Electric Bills: No Difficulty Paying for Meds: No Currently Unemployed: No Education: High School Diploma/GED Difficulty w/ Childcare or Family Care: No Spiritual care concerns: No Meds Home Medications and Allergies Home Medications ?Medication ?Instructions ?Recorded ?Confirmed ?Type vits no.126-ferrous fum 1 tablet PO DAILY 08/05/23 11/30/24 History 28 mg iron-folic acid 800 mcg tablet (Classic ) ferric maltol 30 mg capsule 30 mg PO BID 11/16/24 11/30/24 History (Braydener) Allergies Allergy/AdvReac Type Severity Reaction Status Date / Time ciprofloxacin (From Cipro) Allergy Rash Verified 12/06/24 20:57 Sulfa (Sulfonamide Allergy Swelling Verified 12/06/24 20:57 Antibiotics) Vital Signs Vital Signs - 24 hr 12/06/24 18:00 12/06/24 18:41 12/06/24 19:00 Temperature 97.8 F 97.8 F Pulse Rate 109 H Blood Pressure 163/102 H Pulse Oximetry Oxygen Delivery 12/06/24 19:15 12/06/24 19:45 12/06/24 20:00 Temperature Pulse Rate 109 H 105 H 100 Blood Pressure 150/94 H 143/99 H 145/85 H Pulse Oximetry Oxygen Delivery 12/06/24 21:00 12/06/24 21:10 12/06/24 22:00 Temperature 98 F Pulse Rate 93 105 H Blood Pressure 143/92 H 135/89 Pulse Oximetry Oxygen Delivery Room Air 12/06/24 23:00 12/07/24 00:00 12/07/24 00:27 Temperature Pulse Rate 104 H 100 Blood Pressure 132/86 115/59 L Pulse Oximetry 99 Oxygen Delivery 12/07/24 00:28 12/07/24 00:32 12/07/24 00:37 Temperature 97.2 F L Pulse Rate Blood Pressure Pulse Oximetry 100 98 Oxygen Delivery 12/07/24 00:42 12/07/24 00:47 12/07/24 00:52 Temperature Pulse Rate Blood Pressure Pulse Oximetry 99 99 98 Oxygen Delivery 12/07/24 00:57 12/07/24 01:00 12/07/24 01:02 Temperature Pulse Rate 108 H Blood Pressure 121/64 Pulse Oximetry 98 99 Oxygen Delivery 12/07/24 02:27 12/07/24 03:00 12/07/24 04:00 Temperature Pulse Rate 96 113 H 106 H Blood Pressure 124/62 114/62 129/71 Pulse Oximetry Oxygen Delivery 12/07/24 05:00 12/07/24 05:01 12/07/24 05:30 Temperature 97 F L Pulse Rate 99 89 Blood Pressure 157/94 H 145/93 H Pulse Oximetry Oxygen Delivery 12/07/24 06:00 Temperature Pulse Rate 96 Blood Pressure 152/99 H Pulse Oximetry Oxygen Delivery Exam Const: General: cooperative, healthy appearing and comfortable Nutritional Appearance: average body habitus (Gravid soft uterus) Orientation/consc iousness: oriented to person and oriented to time HENMT: Head: normal to inspection Resp: Effort & Inspection: normal respiratory effort Cardio: Rate: regular rate Rhythm: regular rhythm Heart sounds: S1 normal heart sound present and S2 normal heart sound present GI: Inspection: normal to inspection (Gravid soft uterus) : External Female Exam: normal external appearance Speculum Exam - Vagina: normal appearance of the vagina Speculum Exam - Cervix: normal appearance of the cervix (Cervix 5/80/1. AROM clear FHTs reassuring) H&P: Results Labs Labs: Short CBC 12/06/24 Range/Units 19:07 WBC 10.3 H (4.5-10.0) K/mm3 Hgb 8.6 L (12.0-15.0) g/dL Hct 28.6 L (37.0-47.0) % Plt Count 272 (150-375) k/mm3 BMP 12/06/24 19:07 Sodium 134 L Potassium 3.9 Chloride 108 H Carbon Dioxide 19 L BUN 7 Creatinine 0.51 L Glucose 107 Calcium 9.1 Liver Function 12/06/24 Range/Units 19:07 Total Bilirubin 0.3 (0.2-1.3) mg/dL AST 23 (14-36) U/L ALT 12 (6-35) U/L Alkaline Phosphatase 94 (38-126) U/L Albumin 3.3 L (3.5-5.1) g/dL Urine 12/06/24 Range/Units 19:07 Urine Color Yellow (Yellow) Urine Appearance Clear (Clear) Urine pH 7.5 (5.0-9.0) Ur Specific [place] 1.018 (1.001-1.035) Urine Protein Trace (Negative) mg/dL Urine Glucose (UA) Negative (Negative) mg/dL Assessment and Plan Assessment and plan (1) Term : Code(s): Z34.90 - Encounter for supervision of normal , unspecified, unspecified trimester Status: Acute (2) Gestational hypertension: Code(s): O13.9 - Gestational [-induced] hypertension without significant proteinuria, unspecified trimester Status: Acute Plan PIH labs were normal. Spontaneous vaginal delivery is expected. She is an epidural candidate
[2024-12-07] MEDS: ePHEDrine sulfate INJ 50 MG/ML AMPUL IV PUSH (12:04)
[2024-12-07] MEDS: OXYTOCIN 30 UNITS/NS 500 ML 30 UNITS/500 ML BAG 125 UNITS IV CONT (12:06)
--- NOTE | 2024-12-07 12:12 | PM.OBPRVD ---
OB - Vaginal Delivery Note Procedure Delivery date: 12/07/24 Events: Gestational Hypertension Induction method: None Delivery augmentation: Rupture of Membranes and Pitocin Delivery monitor: External FHT and Internal Uterine Route of delivery: Episiotomy description: None Laceration Description: None Quantitative Blood Loss (ml): 62 Anesthesia type: Epidural Disposition: Floor Narrative: The patient was admitted on the evening of 12/06/2024 elevated blood pressure present artificial rupture membranes performed in the a.m. she progressed unremarkable 1st stage of labor to completely dilated when she was complete, she pushed, delivered head spontaneously in the PATRICK position. Anterior posterior shoulder delivered spontaneously. Cord clamped x2 and cut infant passed off the table given Apgars of 8 [id number] 9 [id number]. Cord blood was drawn. Placenta delivered intact spontaneously. Twenty of Pitocin placed IV to help firm the uterus. The vagina was inspected no tears or lacerations seen. Blood loss estimated at62cc. All sponge, needle, instrument counts were correct Baby Date of : 12/07/24 Time of : 11:32 Gestational Age by Date: 38 Infant gender: Female presentation: vertex position: Right Occiput Anterior Placenta delivery description: Spontaneous Cord Vessel Description: 3 Vessels score one minute: 8 score five minutes: 9
--- NOTE | 2024-12-07 12:15 | P.DS_ITS ---
DS: Admitting Diagnosis Discharge Date 12/08/2024 Admitting Diagnosis Term /gestational hypertension DS: Discharge Diagnosis Discharge Diagnosis (1) Gestational hypertension: Code(s): O13.9 - Gestational [-induced] hypertension without significant proteinuria, unspecified trimester Status: Acute (2) Term : Code(s): Z34.90 - Encounter for supervision of normal , unspecified, unspecified trimester Status: Acute DS: Summary Hospital Course Reason for hospitalization: Patient was admitted on the evening of 12/06/2024 and underwent spontaneous vaginal delivery on 12/02 5:25 a.m. Hospital Course: Patient's hospital course unremarkable. She remained afebrile. She was up, voiding without difficulty, eating regular diet, ambulating, and generally without complaints. Time Spent with Patient Time attestation: Total time spent providing and/or coordinating discharge services: Exam Const: General: cooperative, healthy appearing and comfortable Nutritional Appearance: average body habitus (Gravid soft uterus) Orientation/consciousness: oriented to person and oriented to time HENMT: Head: normal to inspection Resp: Effort & Inspection: normal respiratory effort Cardio: Rate: regular rate Rhythm: regular rhythm Heart sounds: S1 n ormal heart sound present and S2 normal heart sound present GI: Inspection: normal to inspection (Gravid soft uterus) : External Female Exam: normal external appearance Speculum Exam - Vagina: normal appearance of the vagina Speculum Exam - Cervix: normal appearance of the cervix (Cervix 5/80/1. AROM clear FHTs reassuring) DS: Data Data Completed and Pending Labs on day of discharge: Labs from last 24 hours 12/06/24 19:07 WBC 10.3 H RBC 3.78 L Hgb 8.6 L Hct 28.6 L MCV 75.7 L MCH 22.8 L MCHC 30.1 L RDW 15.7 H Plt Count 272 MPV 9.9 Immature Gran % (Auto) 0.7 H Neut % (Auto) 67.4 Lymph % (Auto) 20.8 [place] % (Auto) 8.7 H Eos % (Auto) 2.1 Baso % (Auto) 0.3 Lymph # (Auto) 2.13 [place] # (Auto) 0.9 H Eos # (Auto) 0.2 Baso # (Auto) 0.0 Abs Immat Gran (auto) 0.07 H Absolute Neuts (auto) 6.9 H Absolute Nucleated RBC 0.020 H Nucleated RBC % 0.2 Sodium 134 L Potassium 3.9 Chloride 108 H Carbon Dioxide 19 L Anion Gap 7 BUN 7 Creatinine 0.51 L Estim Creat Clear Calc Not Reportable Estimated GFR > 60 Glucose 107 Uric Acid 5.1 Calcium 9.1 Total Bilirubin 0.3 AST 23 ALT 12 Alkaline Phosphatase 94 Total Protein 6.5 Albumin 3.3 L Urine Color Yellow Urine Appearance Clear Urine pH 7.5 Ur Specific [place] 1.018 Urine Protein Trace Urine Glucose (UA) Negative Urine Ketones Negative Ur Blood (Man) Negative Urine Nitrate Negative Urine Bilirubin Negative Urine Urobilinogen 0.2 Add Ur Microanalysis Reviewed Leukocyte Esterase Rfl 1+ H Urine RBC 0-2 Urine WBC 0-5 Ur Squamous Epith Cells Occasional Urine Bacteria None seen Urine Casts 0-2 U Random Total Protein 9 Urine Creatinine 96.6 Protein/Creat Ratio 2 0.09 Syphilis IgG/IgM Ab Non-reactive Blood Type A Positive Antibody Screen Negative Discharge Plan Discharge Attending physician on discharge: Sohan Barrera Discharging Clinician: Sohan Barrera Patient Disposition: Home Activity: may shower, no straining and pelvic rest Diet: heart healthy Wound Care Instructions: follow printed instructions Patient Instructions: Antibiotic Form Patient Language: Libyan Stand Alone Forms: General Discharge Information Follow-up/Referrals: Sohan Barrera MD [Physician] - Discharge Medications: Continued Classic 28 mg iron- 800 mcg Tablet 1 tablet PO DAILY Accrufer 30 mg capsule 30 mg PO BID Date of admission: 12/06/24 18:22 Primary Care Provider: PHYSICIAN,DIRECTOR OF RETENTION Admitting Provider: Sohan Barrera Attending physician on admission: Sohan Barrera Condition: Stable
--- NOTE | 2024-12-07 12:42 | WPDANESEPPF ---
Anes - Initial Pre Proc Eval Date/Time: 12/07/24 12:42 Surgeon: Sohan Rg MD Pre Op Diagnosis: vision, contractions Patient Data Age: 29 Gender: F Height: 1.6 m Weight: 105 kg Last Vital Signs Temp 36.2 C L 12/07/24 06:15 Pulse 88 12/07/24 12:30 BP 101/69 12/07/24 12:30 Pulse Ox 100 12/07/24 11:31 O2 Del Method Room Air 12/07/24 09:07 Allergies Allergy/AdvReac Type Severity Reaction Status Date / Time ciprofloxacin (From Cipro) Allergy Rash Verified 12/06/24 20:57 Sulfa (Sulfonamide Allergy Swelling Verified 12/06/24 20:57 Antibiotics) Home Medications ?Medication ?Instructions ?Recorded ?Confirmed ?Type vits no.126-ferrous fum 1 tablet PO DAILY 08/05/23 11/30/24 History 28 mg iron-folic acid 800 mcg tablet (Classic ) ferric maltol 30 mg capsule 30 mg PO BID 11/16/24 11/30/24 History (Accrufer) Laboratory Tests 12/06/24 19:07 WBC 10.3 H K/mm3 (4.5-10.0) RBC 3.78 L M/mm3 (4.2-5.4) Hgb 8.6 L g/dL (12.0-15.0) Hct 28.6 L % (37.0-47.0) MCV 75.7 L fl (80-100) MCH 22.8 L pg (26-34) MCHC 30.1 L g/dl (32-36) RDW 15.7 H % (11.5-14.5) Plt Count 272 k/mm3 (150-375) MPV 9.9 fl (7.4-10.4) Immature Gran % (Auto) 0.7 H % (0-0.5) Neut % (Auto) 67.4 % (45.5-73.1) Lymph % (Auto) 20.8 % (18.3-44.2) [place] % (Auto) 8.7 H % (2.6-8.5) Eos % (Auto) 2.1 % (0-4.4) Baso % (Auto) 0.3 % (0.2-1.2) Lymph # (Auto) 2.13 K/mm3 (0.9-3.2) [place] # (Auto) 0.9 H K/mm3 (0.1-0.6) Eos # (Auto) 0.2 K/mm3 (0-0.3) Baso # (Auto) 0.0 K/mm3 (0.0-0.1) Abs Immat Gran (auto) 0.07 H K/mm3 (0.00-0.031) Absolute Neuts (auto) 6.9 H K/mm3 (1.3-6.7) Absolute Nucleated RBC 0.020 H K/mm3 (0.0-0.012) Nucleated RBC % 0.2 % (0.0-0.2) Sodium 134 L mmol/L (137-145) Potassium 3.9 mmol/L (3.4-5.0) Chloride 108 H mmol/L (98-107) Carbon Dioxide 19 L mmol/L (22-30) Anion Gap 7 mmol/L (4-12) BUN 7 mg/dL (7-17) Creatinine 0.51 L mg/dL (0.7-1.0) Estim Creat Clear Calc Not Reportable Estimated GFR > 60 (59 - ) Glucose 107 mg/dL (65-110) Uric Acid 5.1 mg/dL (2.5-7.5) Calcium 9.1 mg/dL (8.4-10.2) Total Bilirubin 0.3 mg/dL (0.2-1.3) AST 23 U/L (14-36) ALT 12 U/L (6-35) Alkaline Phosphatase 94 U/L (38-126) Total Protein 6.5 g/dL (6.3-8.2) Albumin 3.3 L g/dL (3.5-5.1) Urine Color Yellow (Yellow) Urine Appearance Clear (Clear) Urine pH 7.5 (5.0-9.0) Ur Specific [place] 1.018 (1.001-1.035) Urine Protein Trace mg/dL (Negative) Urine Glucose (UA) Negative mg/dL (Negative) Urine Ketones Negative mg/dL (Negative) Ur Blood (Man) Negative (Negative) Urine Nitrate Negative (Negative) Urine Bilirubin Negative (Negative) Urine Urobilinogen 0.2 mg/dL (<2.0) Add Ur Microanalysis Reviewed Leukocyte Esterase Rfl 1+ H [place]/UL (Negative) Urine RBC 0-2 /hpf (0-2) Urine WBC 0-5 /hpf (0-3) Ur Squamous Epith Cells Occasional /hpf (Few) Urine Bacteria None seen /hpf Urine Casts 0-2 U Random Total Protein 9 mg/dL Urine Creatinine 96.6 mg/dL Protein/Creat Ratio 2 0.09 mg/mg (0-0.20) Syphilis IgG/IgM Ab Non-reactive (Nonreactive) Blood Type A Positive Antibody Screen Negative Patient hx anesthesia problems: none Family hx anesthesia problems: none Results Review: All pre-operative results and documents have been reviewed as part of the pre-operative evaluation. [facility] Family History Family History Sibling Trisomy 13 Other Unknown family medical history Social History Social History Smoking status: Never smoker Substance use: never Do You Feel Safe in your Home?: No Lack of Transportation: No Lack of Food: Never True Current Housing: I Have Housing Concerned About Future Housing: No Difficulty Paying Gas/Electric Bills: No Difficulty Paying for Meds: No Currently Unemployed: No Education: High School Diploma/GED Difficulty w/ Childcare or Family Care: No Spiritual care concerns: No Anes - Eval Final PreProcedure Day of Procedure 12/07/24 12:42 Patient weight: morbidly obese Airway: Mallampati scale class II Neurological: alert and oriented Last oral intake: >/= 8 hours ASA classification: III Emergent: no Anesthetic plan: proceed Anesthesia type and monitoring: regional epidural and standard monitoring Results Review: All pre-operative results and documents have been reviewed as part of the pre-operative evaluation. Informed Consent: The patient's anesthetic plan and its attendant risks and benefits were discussed with the patient/family/POA. Questions were solicited and answers provided to the satisfaction of the patient/family/POA.
[2024-12-07] MEDS: WITCH HAZEL 40 PADS 1 PAD TOPICAL (13:59)
[2024-12-07] MEDS: BENZOCAINE 20% AER SPR (*SP) 56 GM CAN 1 SPRAY TOPICAL (13:59)
--- NOTE | 2024-12-07 14:17 | OBPPTRN ---
Patient transferred to post room #292 via wheelchair. Support person present. Oriented to unit, room, information board, rooming in, admission packet and security measures. Patient verbalizes understanding.
[2024-12-07] MEDS: ACETAMINOPHEN 325 MG TABLET 650 MG PO ×2 (14:36→20:10)
[2024-12-07] MEDS: IBUPROFEN 600 MG TABLET PO ×2 (16:34→22:17)
[2024-12-07] MEDS: POLYSACCHARIDE IRON COMPLEX 150 MG CAPSULE PO (16:34)
[2024-12-08 02:15] VITALS: BP 125/89
[2024-12-08] MEDS: IBUPROFEN 600 MG TABLET PO (04:03)
[2024-12-08 05:35] LABS: Hematocrit 29.4 % (37.0-47.0); Hemoglobin 8.5 g/dL (12.0-15.0)
--- NOTE | 2024-12-08 06:54 | P.PNOB_ITS ---
OB - PN: Subj Subjective Date/time seen: 12/08/24 06:54 Patient comments: no complaints, pain well controlled and tolerating diet [place] baby status: doing well OB - PN: Obj Data Labs 12/08/24 04:05 12/06/24 19:07 Labs: Laboratory Results - last 24 hr 12/08/24 04:05 Hgb 8.5 L Hct 29.4 L OB - PN A/P Assessment and Plan (1) Term : Code(s): Z34.90 - Encounter for supervision of normal , unspecified, unspecified trimester Status: Acute (2) Gestational hypertension: Code(s): O13.9 - Gestational [-induced] hypertension without significant proteinuria, unspecified trimester Status: Acute Plan Comments: home Time Spent With Patient Time: Total time spent is greater than 50% in coordination of care (as documented) at patient's floor/unit and/or counseling patient: Review of Systems 2 Review of Systems: All systems reviewed & are unremarkable except as noted in HPI and below Exam 2 Const: General: cooperative, healthy appearing and comfortable Nutritional Appearance: average body habitus (Gravid soft uterus) O rientation/consciousness: oriented to person and oriented to time HENMT: Head: normal to inspection Resp: Effort & Inspection: normal respiratory effort Cardio: Rate: regular rate Rhythm: regular rhythm Heart sounds: S1 normal heart sound present and S2 normal heart sound present GI: Inspection: normal to inspection (Gravid soft uterus) : External Female Exam: normal external appearance Speculum Exam - Vagina: normal appearance of the vagina Speculum Exam - Cervix: normal appearance of the cervix (Cervix 5/80/1. AROM clear FHTs reassuring)
[2024-12-08 08:35] VITALS: BP 136/90; PULSE 84; RESP 16; TEMP 36.7; O2SAT 99
[2024-12-08] MEDS: POLYSACCHARIDE IRON COMPLEX 150 MG CAPSULE PO (09:07)
[2024-12-08] MEDS: MULTIVIT/MIN/PREN/FOL AC/IRON TABLET 1 TAB PO (09:07)
[2024-12-08] MEDS: DOCUSATE SODIUM 100 MG CAPSULE PO (09:07)
[2024-12-08 12:08] VITALS: BP 128/82; PULSE 92; RESP 16; TEMP 37.3; O2SAT 98
[2024-12-10 11:35] VITALS: BP 135/87; PULSE 96; RESP 18; TEMP 36.6; O2SAT 99
== END 2024-12-08 13:37 | disposition home or self-care (01) | DRG 807 ==
LOC: ANHLDR 12-07 12:17 → ANHOB2 12-07 14:32
PROVIDERS: Admitting Provider Obstetrics & Gynecology; Visit Provider Obstetrics & Gynecology
DX: O13.4 Gestational [pregnancy-induced] hypertension without significant proteinuria, complicating childbirth (principal); Z37.0 Single live birth; O32.6XX0 Maternal care for compound presentation, not applicable or unspecified; Z3A.38 38 weeks gestation of pregnancy
CPT/HCPCS: 36415; 80053; 81001; 82570; 84156; 84550; 85014; 85018; 85025; 86593; 86850; 86900; 86901; 87086; A9270; J2590; J2795; J7120